=== PATIENT | female | born 1985 | race American Indian/Alaskan Native ===

== ENCOUNTER 2025-01-01 19:36 | Inpatient (IN) | payer MEDICAID ==
[~2025-01-01] VITALS: Ht 170.2 cm; Wt 182.4 kg
--- NOTE | 2025-01-01 20:18 | ELECTROCARDIOGRAPH REPORT ---
[facility] Test Date: 2025-01-01 Test Time: 20:15:42 Pat Name: DARSHAN FERREIRA Department: EMERGENCY ROOM Room: [place] [address] Gender: F Molecular Biology Director: MARIA R : 1985 Requested By: THU WOLFE Order Number: [id number] Reading MD: Dr. Timmy Oakes Measurements Intervals [place] Rate: 90 P: 38 AL: 139 QRS: -43 QRSD: 90 T: 42 QT: 362 QTc: 443 Interpretive Statements Sinus rhythm Left axis deviation Abnormal R-wave progression, late transition Baseline wander in lead(s) I,V3 Electronically Signed On 01-08-2025 7:51:[address] Timmy Oakes Please click the below link to view image of tracing.
[2025-01-01 20:20] LABS: MEAN PLATELET VOLUME 7.3 FL (7.4-10.4); RED CELL DISTRIBUTION WIDTH 14.7 % (11.5-14.5)
--- NOTE | 2025-01-01 20:27 | Physician Documentation ---
History of Present Illness General Chief Complaint: Abdominal Pain Stated Complaint: POSS HERNIA Time Seen by MD: 20:25 History of Present Illness Initial Comments Patient is a 39-year-old female who presents with sudden onset abdominal pain on the left side. The patient has significant obesity she states that about 18 30 she developed significant and severe left-sided abdominal pain, she also states she developed nausea. The patient denies any fevers or chills or diarrhea. Patient states she thinks she may have a hernia. The patient has had extensive surgery after she had gallbladder removal and a complication of gallbladder removal. Patient's symptoms are moderate to severe and persistent. Medication Reconciliation Allergies: Uncoded Allergies: BEE VENOM (Allergy, Severe, 01/01/25) Scheduled Bupropion Hcl (Wellbutrin), 1 TAB PO DAILY Buspirone Hcl* (Buspar*), 15 MG PO DAILY Rivaroxaban (Xarelto), 10 MG PO DAILY Review of Systems All Other Systems at this time: Reviewed and Negative Physical Exam Physical Exam Vital Signs: Temperature: 98.1, Source: Oral, Heart Rate: 100, Respiratory Rate: 18, BP: 152/91, Pulse Oximetry: 99, Weight: 182.400 Physical Exam VITALS: Reviewed and as above. GENERAL: Alert, mild distress secondary to pain large BMI HEENT: Normocephalic, atraumatic, PERRL, EOMI, dry mucosa, no erythema RESPIRATORY: Lungs clear, normal breath sounds, no respiratory distress. CHEST: No accessory muscle use, no retractions CV: Regular rate, rhythm, no edema, no murmur, No: JVD GI: Soft, diffuse left-sided tenderness patient has a vertical and horizontal abdominal scar in the upper abdomen well healed bowels sounds present, no rebound, guarding, or rigidity BACK: No CVA tenderness, or swelling MUSCULOSKELETAL: No deformities, no edema SKIN: Warm and dry, no rash NEURO: Oriented x4, No motor or sensory deficit PSYCH: Normal mood and affect, no agitation Progress Results/Orders Results/Orders Orders - OHLSONIA LUCIO MD Ct Abdomen Pelvis (01/01/25 21:50) Page Hospitalist (01/02/25 00:34) Fill Out Med Reconciliation (01/02/25 00:34) Completed Orders - SONIA SMALLWOOD MD Procalcitonin (01/01/25 20:39) Ketorolac Trometh 15mg/Ml Vial (Toradol (01/01/25 20:40) Metoclopramide Inj (Reglan Inj) (01/01/25 20:40) Diphenhydramine Inj (Benadryl Inj.) (01/01/25 20:40) Ct Abdomen Pelvis (01/01/25 21:50) Vital Signs 01/01/25 01/01/25 01/01/25 01/01/25 20:03 20:20 21:20 22:00 Temp 98.1 Pulse 100 90 Resp 18 18 16 16 B/P (MAP) 152/91 137/97 (110) Pulse Ox 99 99 01/01/25 01/02/25 01/02/25 23:15 00:07 01:21 Temp 97.9 97.9 Pulse 89 104 85 Resp 18 16 18 B/P (MAP) 141/83 (102) 163/94 (117) 125/73 (90) Pulse Ox 99 96 98 O2 Flow Rate 0 Laboratory Tests Test 01/01/25 20:11 01/01/25 20:18 01/01/25 22:04 White Blood Count 10.1 Red Blood Count 5.40 Hemoglobin 14.7 Hematocrit 43.0 Mean Corpuscular Volume 79.7 Mean Corpuscular Hemoglobin 27.2 Mean Corpuscular Hemoglobin Concent 34.2 Red Cell Distribution Width 14.7 H Platelet Count 353 Mean Platelet Volume 7.3 L Neutrophils (%) (Auto) 66.6 Lymphocytes (%) (Auto) 24.1 Monocytes (%) (Auto) 5.6 Eosinophils (%) (Auto) 2.2 Basophils (%) (Auto) 1.5 H Neutrophils # (Auto) 6.7 Lymphocytes # (Auto) 2.4 Monocytes # (Auto) 0.6 Eosinophils # (Auto) 0.2 Basophils # (Auto) 0.1 CBC Comment Sodium Level 137 Potassium Level 3.9 Chloride Level 105 Carbon Dioxide Level 26.3 Anion Gap 6 L Blood Urea Nitrogen 18 Creatinine 0.94 H Estimated GFR/1.73 m2 66 BUN/Creatinine Ratio 19.1 Glucose Level 120 H Calcium Level 8.8 Total Bilirubin 0.2 Aspartate Amino Transf (AST/SGOT) 18 Alanine Aminotransferase (ALT/SGPT) 23 Alkaline Phosphatase 155 H Troponin I High Sensitivity 5 5 Pro-B-Type Natriuretic Peptide 160 H Total Protein 7.4 Albumin 3.0 L Globulin 4.4 H Albumin/Globulin Ratio 0.7 L Lipase 26 Procalcitonin < 0.05 Chemistry Comments Urine Specimen Description Voided Urine Color Yellow Urine Clarity Clear Urine pH 6.0 Urine Specific [place] 1.025 Urine Protein Negative Urine Glucose (UA) Negative Urine Ketones Trace H Urine Occult Blood Negative Urine Nitrite Negative Urine Bilirubin Negative Urine Urobilinogen 0.2 Urine Leukocyte Esterase Negative Urine Culture Indicated Not ind Volume Urine Centrifuged 10 ml Urine HCG, Qualitative Negative Urine Comment Troponin I High Sens Percent Delta 0 Troponin I Hi Sens Absolute Change 0 EKG/XRAY/CT/US/VASC/MRI Chest X-Ray : Additional Comments Patient: DARSHAN FERREIRA Medical Record: [id number] HOSPITAL : 1985, Age: 39 Sex: Female Location: ER Patient Status: REG ER Service Date/Time: 01/01/252009 Ordering Physician: THU WOLFE Exam: CHEST,SINGLE VIEW CHEST RADIOGRAPH Indication: CP Technique: Single frontal view of the chest was obtained Comparison: None FINDINGS: Lines and Tubes: None Lungs: No focal consolidation. Bronchovascular crowding due to low lung volumes. Underpenetration of the image due to patient's body habitus. metallic densities overlying the right medial lower lung zone which are most likely external to the patient. Pleura: No effusion. No pneumothorax. Cardiomediastinal contours: Unremarkable Bones: No acute osseous abnormality. IMPRESSION: No acute cardiopulmonary disease. Vascular crowding due to low lung volumes. 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 This exam was performed according to our departmental dose optimization program. Up-to-date CT equipment and radiation dose reduction tech niques are utilized as appropriate. CTDI: 36.88 DLP: 2152.05 WID: COMPARISON: None FINDINGS: Lower Thorax: Normal-sized heart. Linear bibasilar scarring or atelectasis, greater on the right. Liver and Biliary system: Mild hepatomegaly measuring 20 cm craniocaudal. No definite hepatic lesion. Cholelithiasis. No biliary ductal dilatation. Spleen: Unremarkable. Adrenal Glands and Kidneys: Normal adrenal glands. There is no hydronephrosis or nephrolithiasis. Pancreas and Retroperitoneum: Normal pancreas. There is no retroperitoneal lymphadenopathy. Aorta and Major Vessels: Aortoiliac vessels are normal in caliber. There is an IVC filter terminating below the level of the renal veins with the struts extending beyond the lumen of the IVC. Bowel, Mesentery and Peritoneal space: There is mild dilatation of a segment of small bowel measuring up to 4.5 cm on series 2, image 95 leading up to a segment of small-bowel coursing into an anterior left of midline abdominal wall hernia ( series 2, image 74). The small bowel beyond this segment is decompressed. Normal caliber large bowel. Normal appendix. No free air or fluid collection. Pelvis: Grossly normal uterus and ovaries aside from a cystic lesion in the right ovary on series 2, image 93. There is no pelvic lymphadenopathy. Urinary bladder is mildly distended.. Abdominal wall and Osseous Structures: Mild body wall edema. Mild lower thoracic and lumbar spondylosis. No destructive osseous lesion. No destructive osseous lesion. Prior midline laparotomy and soft tissue scarring in the anterior abdominal wall. IMPRESSION: 1. Small-bowel obstruction of a segment of mid to distal small bowel loop with transition point in a short segment of small bowel coursing into a right of midline anterior abdominal wall hernia. This could reflect a subincisional abdominal wall hernia given post surgical changes in the anterior abdominal wall. 2. Cholelithiasis. 3. Mild hepatomegaly. Electronically Signed by:MICHELA RIVERS MD Date & Time: 01/02/2511 Dictated by: MICHELA RIVERS MD Dictation date and time: 01/02/2511 Primary Care Provider: NO PRIMARY CARE PROVIDER cc: SONIA SMALLWOOD MD ~ Medical Decision Making Additional information obtaine: old records Findings Patient is a 39-year-old female with abdominal pain she has a very large BMI and had difficult exam she is extremely uncomfortable I gave her medications to incl ude Reglan Benadryl and analgesics, the patient's CT imaging demonstrates a hernia with possible obstruction, this was discussed with the surgeon on-call Dr. Gonzalez, the patient is significantly more comfortable now she is amenable to be admitted. The case has been discussed with the hospitalist. The patient will be admitted to the hospitalist. The patient's security monitor was interpreted as sinus rhythm. The patient's CT imaging was reviewed. The patient's chest x-ray was reviewed by me and demonstrated normal-appearing lung honeycutt normal-appearing cardiac silhouette and normal-appearing bony structures interpreted as a normal chest x-ray. The patient's EKG was interpreted as a sinus rhythm rate of 90 with a left axis deviation and normal-appearing ST segments and no ST-elevation or ST-depression I interpreted as a normal EKG time 2014 Differential Diagnosis Colitis enteritis perforated bowel diverticulitis appendicitis Departure Disposition: HOME / SELF CARE / HOMELESS Admitted to Inpatient Unit: yes, to hospitalist Impression: Primary Impression: Abdominal pain Qualified Codes: R10.9 - Unspecified abdominal pain Additional Impression: Small bowel obstruction Referrals: NO PRIMARY CARE PROVIDER (PCP) Prescriptions Buspirone Hcl* (Buspar*) 10 Mg Tablet 15 MG PO DAILY for 30 Days, #60 TAB Prov: YE RAMOS MD 01/02/25 Rivaroxaban (Xarelto) 10 Mg Tablet 10 MG PO DAILY for clotting issues MDD 10 for 7 Days, #7 TAB 0 Refills Prov: YE RAMOS MD 01/02/25 Bupropion Hcl (Wellbutrin) 100 Mg Tablet 1 TAB PO DAILY for 30 Days, #60 TAB 0 Refills Prov: YE RAMOS MD 01/02/25 Signature Scribe Signature: no scribe Attestation: The note accurately reflects work and decisions made by me.Sonia Smallwood MD 01/04/25 06:44 SONIA SMALLWOOD MD Jan 01, 2025 20:27
[2025-01-01 20:42] LABS: CREATININE 0.94 MG/DL (0.40-0.90); TOTAL CARBON DIOXIDE 26.3 MMOL/L (24-32); eCRCL 77 ML/MIN; eGFR 66 ML/MIN
[2025-01-01 20:44] LABS: PRO BRAIN NATRIURETIC PEPTIDE 160 PG/ML (0-125)
--- NOTE | 2025-01-01 20:46 | RADIOLOGY REPORT ---
CHEST RADIOGRAPH Indication: CP Technique: Single frontal view of the chest was obtained Comparison: None FINDINGS: Lines and Tubes: None Lungs: No focal consolidation. Bronchovascular crowding due to low lung volumes. Underpenetration of the image due to patient's body habitus. metallic densities overlying the right medial lower lung zone which are most likely external to the patient. Pleura: No effusion. No pneumothorax. Cardiomediastinal contours: Unremarkable Bones: No acute osseous abnormality. IMPRESSION: No acute cardiopulmonary disease. Vascular crowding due to low lung volumes.
[2025-01-01] MEDS: metoclopramide 5 mg/ml inj IV ONE (21:19)
[2025-01-01] MEDS: ketorolac trometh 15mg/ml vial 15 MG/ML ML IV ONE (21:20)
[2025-01-01 21:35] LABS: LEUKOCYTE ESTERASE ,URINE NEGATIVE (Neg); NITRITES, URINE NEGATIVE (Neg); OCCULT BLOOD,URINE NEGATIVE (Neg)
[2025-01-01 21:37] LABS: URINE HCG NEGATIVE (NEG)
[2025-01-01 21:39] LABS: UA COLLECTION TYPE VOIDED
[2025-01-02] VITALS (19 sets, daily range): BP systolic 93–133; BP diastolic 42–88; PULSE 80–93; RESP 14–20; TEMP 97.7–98.4; O2SAT 93–98
--- NOTE | 2025-01-02 00:14 | RADIOLOGY REPORT ---
CLINICAL HISTORY: abd pain TECHNIQUE: CT of the abdomen and pelvis was performed without intravenous contrast. This exam was performed according to our departmental dose optimization program. Up-to-date CT equipment and radiation dose reduction techniques are utilized as appropriate. CTDI: 36.88 DLP: 2152.05 WID: COMPARISON: None FINDINGS: Lower Thorax: Normal-sized heart. Linear bibasilar scarring or atelectasis, greater on the right. Liver and Biliary system: Mild hepatomegaly measuring 20 cm craniocaudal. No definite hepatic lesion. Cholelithiasis. No biliary ductal dilatation. Spleen: Unremarkable. Adrenal Glands and Kidneys: Normal adrenal glands. There is no hydronephrosis or nephrolithiasis. Pancreas and Retroperitoneum: Normal pancreas. There is no retroperitoneal lymphadenopathy. Aorta and Major Vessels: Aortoiliac vessels are normal in caliber. There is an IVC filter terminating below the level of the renal veins with the struts extending beyond the lumen of the IVC. Bowel, Mesentery and Peritoneal space: There is mild dilatation of a segment of small bowel measuring up to 4.5 cm on series 2, image 95 leading up to a segment of small-bowel coursing into an anterior left of midline abdominal wall hernia ( series 2, image 74). The small bowel beyond this segment is decompressed. Normal caliber large bowel. Normal appendix. No free air or fluid collection. Pelvis: Grossly normal uterus and ovaries aside from a cystic lesion in the right ovary on series 2, image 93. There is no pelvic lymphadenopathy. Urinary bladder is mildly distended.. Abdominal wall and Osseous Structures: Mild body wall edema. Mild lower thoracic and lumbar spondylosis. No destructive osseous lesion. No destructive osseous lesion. Prior midline laparotomy and soft tissue scarring in the anterior abdominal wall. IMPRESSION: 1. Small-bowel obstruction of a segment of mid to distal small bowel loop with transition point in a short segment of small bowel coursing into a right of midline anterior abdominal wall hernia. This could reflect a subincisional abdominal wall hernia given post surgical changes in the anterior abdominal wall. 2. Cholelithiasis. 3. Mild hepatomegaly.
[2025-01-02] MEDS ORDERED: magnesium Cl slow-release 64mg tablet PO PRN (01:25)
[2025-01-02] MEDS ORDERED: magnesium sulf-water 4G/100mL 100 ML IV PRN (01:25)
[2025-01-02] MEDS ORDERED: ondansetron/PF 4mg/2ml inj IV PRN ×2 (01:25→19:25)
[2025-01-02] MEDS ORDERED: potassium Cl 40MEQ/1/2NS 520ml 520 ML IV PRN (01:25)
[2025-01-02] MEDS ORDERED: magnesium sulf-water 2g/50mL 50 ML IV PRN (01:25)
[2025-01-02] MEDS ORDERED: potassium Cl 20 mEq SR tablet PO PRN ×2 (01:25)
[2025-01-02] MEDS: normal saline 1000ml 1,000 ML IV SCH (01:55)
--- NOTE | 2025-01-02 02:02 | HISTORY AND PHYSICAL-Residence ---
History & Physical Providers to CC Resident Creating Document: YASH HARPERTAQUERIA ~ History of Present Illness Reason for Admit\Complaint: Abdominal pain History of Present Illness 39 years old female with history of obesity BMI 63, multiple abdominal surgery presented to the ED due to abdominal pain. Patient reported pain started yesterday suddenly, it was on in the middle part of abdomen, severity 7/10, non positional, not radiated, no aggravating factor, however he reported he had 2 times vomiting and after vomiting pain subside to three 4/10. He denied any changes in bowel movement, last bowel movement was normal a day before visit ER, no any changes in urinary habits. Denied fever or chills shortness of breaths, chest pain. Patient had extensive abdominal surgery, started about seven eight years ago she underwent cholecystectomy and afterward she had 4 herniorrhaphy, last surgery was last January. Allergies: Uncoded Allergies: BEE VENOM (Allergy, Severe, 01/01/25) Past Medical History Past Medical History Asthma Past Surgical History Surgical History Comment Cholecystectomy 2019 Herniorrhaphy 4 times waiting last 70 years last one was02/08 DVT Family History Family History: Patient reports no known family medical history. Past Social History Smoking: Quit greater than 1 year Alcohol Use: Sober (Quit drinking alcohol since 2019) Drug Use: None ROS ROS Constitutional: No fever, dizziness, weakness. no change in appetite/weight HEENT: No blurring of the vision, No sore throat, epistaxis, tinnitus Cardiovascular: no chest pain/discomfort, palpitations, no syncope. No pedal edema Respiratory: No sob, cough,, hemoptysis Gastrointestinal: As HPI Genitourinary: No frquency, urgency, incontinence, nocturia. No dysuria, hematuria Musculoskeletal: No arthralgia, myalgia Endocrine: No polydipsia, polyuria. No heat or cold intolerance Neurologic: No headache, vertigo. No weakness, no numbness or tingling of extremities Psychiatric: No hallucinations/delusions, no anhedonia, no suicidal ideation\ Hematologic: No bleeding or bruises Exam Vitals: Vital Signs Date Time Temp Pulse Resp B/P (MAP) Pulse Ox O2 Delivery O2 Flow Rate FiO2 01/02/25 01:21 85 18 125/73 (90) 98 01/02/25 00:07 97.9 0 General: General: Obese lady, Awake and Alert, no acute distress. HEENT: Conjunctiva pink, Sclera clear, Mucus Membranes moist. Neck: Supple without masses and tenderness. Resp: diminished breath sounds Heart: Regular Rate and rhythm, normal S1 and S2 without murmur, rub or gallop. Abdomen: Obese abdomen, multiple scars, mild tenderness in the middle part of abdomen, Extremities: No cyanosis,clubbing or edema. Skin: Warm and Dry. Neurological: Speech is clear, alert, and oriented x 4, no gross neurological deficits Diagnostic Data Last Recorded Lab Results: 01/01/25201001/01/252010 Advance Care Planning Advanced Care plannin - 30 Minutes Additional Plan 39 years old female with history of obesity, multiple abdominal surgery presented to ED with abdominal pain Abdominal pain small-bowel obstruction No leukocytosis, procalcitonin is normal, lactic acid is pending CT scan showed: 1. Small-bowel obstruction of a segment of mid to distal small bowel loop with transition point in a short segment of small bowel coursing into a right of midline anterior abdominal wall hernia. This could reflect a subincisional abdominal wall hernia given post surgical changes in the anterior abdominal wall. 2. Cholelithiasis. 3. Mild hepatomegaly. Patient received ketorolac and Benadryl in ED and pain controlled, we will continue with IV Tylenol IV fluid started, Dr Garcia was consulted in ED, agreed to evaluate patient we will put the NG tube History of DVT Patient is taking Xarelto at home we will hold it for tonight for possible surgery Code status discussed with patient, and he expressed a preference for DNR, she understand the concept of DNR and reported I was DNR since I was 21 years old! Code Status: DNR, DVT prophylaxis: Lovenox Analgesia/sedation: Morphine, Tylenol Line/tube: Peripheral GI prophylaxis: Protonix Nutrition: NPO PT: Y Prognosis: Guarded Disposition: Continue monitoring in ortho floor with telemetry Yash Harper MD Internal Medicine Resident Patient evaluated using HIPPA complaint AV device Agree with plan as discussed with the resident Ye Moreno MD Date of Service: Jan 02, 2025 Billing Provider: YE MORENO MD, ELAHE, TAQUERIA Jan 02, 2025 02:02 YE MORENO MD Jan 02, 2025 03:24
[2025-01-02] MEDS ORDERED: BUPR100T13 PO ×2 (02:25→07:56)
[2025-01-02] MEDS ORDERED: BUSP10TA11 PO ×2 (02:26→08:03)
[2025-01-02] MEDS ORDERED: RIVA10TA PO ×2 (02:28→07:59)
[2025-01-02] MEDS ORDERED: acetaminophen 1,000mg/100ml IV 100 ML IV PRN (02:40)
[2025-01-02] MEDS ORDERED: CefTRIAXone/D5W-Rocephin 1gm 50 ML IV SCH (02:45)
[2025-01-02] MEDS: ringers solution, lacted 1,000 ML IV SCH ×2 (03:47→20:18)
[2025-01-02] MEDS: docusate sod 100mg capsule PO SCH (07:49)
[2025-01-02] MEDS ORDERED: metroNIDAZOLE-Flagyl 500mg/NS 100 ML IV SCH (08:00)
[2025-01-02] MEDS: K and/or MAG REPLACEMENT MC SCH (08:00)
[2025-01-02] MEDS: metoclopramide 5 mg/ml inj IV ONE (09:50)
[2025-01-02] MEDS ORDERED: metoclopramide 5 mg/ml inj IV PRN (09:50)
[2025-01-02 13:33] LABS: APTT 26 SECONDS (22-32); INR 1.0 INR
[2025-01-02] MEDS: ceFOXitin 2GM-NS 100mL ADDvant 100 ML IV ONE (14:10)
--- NOTE | 2025-01-02 14:10 | PROGRESS NOTE ---
Progress Note ID Providers to CC ~ Progress Note Progress Note: pt seen and examined-needs robo repair possible open incisional hernia with sbo- discussed procedure including risks/benefits/alternatives BONIFACIO MOORE MD Jan 02, 2025 14:10
[2025-01-02] MEDS ORDERED: BUPIVAcaine 2.5mg/ml inj 50ml vial (contains preservative) ONE (15:52)
[2025-01-02] MEDS: fentaNYL/PF 50MCG/1 ML 2ML syringe ONE (15:53)
[2025-01-02] MEDS: midazolam 1 mg/ML 2ml injection ONE (15:53)
[2025-01-02] MEDS: famotidine/PF 10 mg/ml inj IV ONE (15:54)
[2025-01-02] MEDS ORDERED: fentaNYL /PF 50mcg/ml 5ml ampule ONE (16:23)
[2025-01-02] MEDS ORDERED: ceFOXitin 1000 MG inj ONE ×2 (16:41)
[2025-01-02] MEDS ORDERED: ondansetron/PF 4mg/2ml inj ONE (16:41)
[2025-01-02] MEDS ORDERED: rocuronium 10mg/ml inj IV ONE ×2 (16:41→17:03)
[2025-01-02] MEDS ORDERED: LIDOcaine 2% (20mg/ml) 5ml vial ONE (16:41)
[2025-01-02] MEDS ORDERED: propofol inj 20 ML IV ONE (16:41)
[2025-01-02] MEDS ORDERED: dexamethasone sod phosphate 4mg/ml inj. ONE (16:42)
[2025-01-02] MEDS ORDERED: vancomycin 1,000mg inj ONE (19:01)
[2025-01-02] MEDS ORDERED: labetalol 20mg/4ml (5mg/ml) syringe IV PRN (19:25)
[2025-01-02] MEDS ORDERED: HYDROmorphone/PF 0.2 MG/ML SYRINGE IV PRN (19:25)
[2025-01-02] MEDS ORDERED: hydrALAZINE 20mg/ml inj. IV PRN (19:25)
--- NOTE | 2025-01-02 19:42 | PROGRESS NOTE- Residence ---
Progress Note - Resident Providers to CC Resident Creating Document: JACOBO SINGLETON RES ~ Antibiotic Timeout Antibiotic Ordered?: Yes Subjective seen and examined patient at bed side, patient underwent Robotic repair of hernia with no mesh , patient is currently on IV fluids and pain medications Objective Vital Signs Date Time Temp Pulse Resp B/P (MAP) Pulse Ox O2 Delivery O2 Flow Rate FiO2 01/02/25 10:00 97.9 89 20 108/63 (78) 96 Room Air 01/02/25 08:00 0.0 Result Diagram: 01/01/25201001/02/25 0152 General: Obese lady, Awake and Alert, no acute distress. HEENT: Conjunctiva pink, Sclera clear, Mucus Membranes moist. Neck: Supple without masses and tenderness. Resp: diminished breath sounds,no ronchi,no wheeze Heart: Regular Rate and rhythm, normal S1 and S2 without murmur, rub or gallop. Abdomen: Obese abdomen, multiple scars, mild tenderness in the middle part of abdomen, Extremities: No cyanosis,clubbing or edema. Skin: Warm and Dry. Neurological: Speech is clear, alert, and oriented x 4, no gross neurological deficits Coagulation Studies Laboratory Tests Test 01/02/25 13:07 Prothrombin Time 9.9 SECONDS (9.0-12.0) INR International Normalized Ratio 1.0 INR Activated Partial Thromboplast Time 26 SECONDS (22-32) Coagulation Comments Advance Care Planning Advanced Care plannin - 30 Minutes Plan Plan 39 years old female with history of obesity, multiple abdominal surgery presented to ED with abdominal pain Abdominal pain small-bowel obstruction No leukocytosis, procalcitonin is normal, lactic acid is pending CT scan showed: 1. Small-bowel obstruction of a segment of mid to distal small bowel loop with transition point in a short segment of small bowel coursing into a right of midline anterior abdominal wall hernia. This could reflect a subincisional abdominal wall hernia given post surgical changes in the anterior abdominal wall. 2. Cholelithiasis. 3. Mild hepatomegaly. Patient received ketorolac and Benadryl in ED and pain controlled, we will continue with IV Tylenol IV fluid started, Dr Garcia was consulted in ED, and patient Underwent robo repair incisional hernia-no mesh-surgery with History of DVT held home medication in view of surgery Code Status: DNR, DVT prophylaxis: SCDs Line/tube: Peripheral GI prophylaxis: Protonix Nutrition: NPO PT: Y Prognosis: Guarded Jacobo Singleton PGY1 Date of Service: Jan 02, 2025 Billing Provider: GRACIE MENA MD, SATISH, RES Jan 02, 2025 19:42
[2025-01-02] MEDS ORDERED: morphine 10mg/ml inj. ONE (19:47)
[2025-01-02] MEDS ORDERED: labetalol 20mg/4ml (5mg/ml) syringe IV ONE (19:54)
[2025-01-02] MEDS ORDERED: enoxaparin 40mg/0.4ml syringe SQ SCH (20:00)
[2025-01-02] MEDS: HYDROmorphone/PF 0.2 MG/ML SYRINGE IV PRN (20:05)
[2025-01-02] MEDS: morphine 4 MG/ML inj SYRINge IV PRN (20:06)
--- NOTE | 2025-01-02 20:10 | OPERATIVE REPORT ---
Operative Report Providers to CC ~ Date of Procedure: Jan 02, 2025 Pre-Operative Diagnosis: incisional hernia with sbo Post-Operative Diagnosis SAME as PRE-Op Procedure Performed robo miri/robo repair incisional hernia-no mesh Surgeon: ashkan mar Anesthesiologist: Taryn Reyes Type of Anesthesia: General Findings: extensive adhesions Estimated Blood Loss: 100 ml Specimen Removed: none BONIFACIO MOORE MD Jan 02, 2025 20:10
[2025-01-02] MEDS: acetaminophen 1,000mg/100ml IV 100 ML IV PRN (20:15)
[2025-01-02] MEDS: ketorolac trometh 30MG/ML vial 30 MG/ML VIAL IM ONE (20:16)
[2025-01-02] MEDS ORDERED: ketorolac trometh 30MG/ML vial 30 MG/ML VIAL IV PRN (20:20)
[2025-01-02] MEDS: HYDROmorphone inj. 0.5 MG/0.5 ML DISP.SYRIN IV PRN (23:55)
[2025-01-03] VITALS (11 sets, daily range): BP systolic 104–129; BP diastolic 59–79; PULSE 76–99; RESP 14–20; TEMP 96.9–98.5; O2SAT 95–98
--- NOTE | 2025-01-03 03:55 | CONSULTATION ---
DATE OF CONSULTATION: 01/02/2025 DICTATING PHYSICIAN: Trent Gonzalez MD REASON FOR CONSULTATION: Incisional hernia. HISTORY OF PRESENT ILLNESS: The patient is a 39-year-old female with a history of multiple incisional hernia repairs, complaints of abdominal pain, nausea and vomiting. CAT scan revealed evidence of an incisional hernia containing a loop of small bowel resulting in the small bowel obstruction. Surgery evaluation is now requested for further questioning. The patient has had recurrent vomiting. Last surgical repair was approximately in January 2024. She has had multiple abdominal procedures including previous cholecystectomy with multiple hernia repairs post cholecystectomy. PAST MEDICAL HISTORY: History of asthma. PAST SURGICAL HISTORY: As outlined above. HOME MEDICATIONS: See chart. ALLERGIES: BEE VENOM. SOCIAL HISTORY: Remote history of alcohol and tobacco use. REVIEW OF SYSTEMS: See H and P. PHYSICAL EXAMINATION: GENERAL: A well-nourished obese female, in no distress. VITAL SIGNS: Unremarkable. HEART: Regular rate and rhythm. LUNGS: Clear to auscultation. ABDOMEN: Shows multiple scars with some tenderness just above the umbilicus. EXTREMITIES: Unremarkable. NEUROLOGIC: Nonfocal. LABORATORY DATA: MCV of 10, hematocrit of 43, platelet count is 353. Iron is 1, PTT is 26. Chemistry is essentially unremarkable. IMAGING STUDIES: CT abdomen and pelvis confirms trends of the incisional hernia containing small bowel. IMPRESSION: * Incisional hernia with small bowel obstruction. * History of obesity. * History of asthma. RECOMMENDATIONS: * N.p.o. * Surgical repair. Trent Gonzalez MD TID: [id number] RECEIPT: [id number] KB/SRI
--- NOTE | 2025-01-03 04:04 | OPERATIVE REPORT ---
DATE OF SURGERY: 01/02/2025 DICTATING PHYSICIAN: Trent Gonzalez MD PREOPERATIVE DIAGNOSIS: Incisional hernia with small bowel obstruction. POSTOPERATIVE DIAGNOSIS: Incisional hernia with small bowel obstruction. PROCEDURES PERFORMED: * Robotic repair of incisional hernia. * Robotic lysis of adhesions. SURGEON: Trent Gonzalez MD SENIOR MANAGER QUALITY ASSURANCE: None. ANESTHESIA: General/Dr. Reyes. DRAINS: None. INDICATIONS FOR OPERATION: The patient is a 39-year-old female, status post previous cholecystectomy. She has had multiple hernias repaired. The patient developed an incisional hernia with small bowel resulting in small bowel obstruction. Taken to the surgery for repair. INTRAOPERATIVE FINDINGS: The patient had extensive adhesions in the abdominal cavity. It was extremely difficult to access given the multiple procedures. DESCRIPTION OF PROCEDURE: Hernia sac was closed via 2 sutures of 0 V-Loc. No mesh was used due to concerns about possible small bowel injury. Per anesthesia, the patient was placed supine on the operating table. After induction of general anesthesia, the patient's abdomen was prepped and draped. A subxiphoid incision was made, but access could not be had into the peritoneal cavity. A subumbilical incision was then made and likewise, it was very difficult to enter the peritoneal cavity. The supraumbilical incision was subsequently made and extended for a short distance cephalad in anticipation of doing an open repair; however, incising the fascia allowed entrance into the peritoneal cavity and a Yun port was subsequently placed. Pneumoperitoneum was initiated. Additional ports were then placed on the left side of the abdomen. There were a number of problems obtaining adequate insufflation given her size; however, ultimately adequate insufflation was obtained. Robotic ports were placed under laparoscopic vision. The robot was then brought to the field. The camera port was docked. The camera was placed and camera targeted. Additional ports were then docked and instruments placed. Adhesions were then taken down robotically. The fascial defect subsequently identified. The fascial defect was then closed with a suture of #0 V-Loc in multiple layers. Given the extensive lysis of adhesions and concerns about a possible potential enterotomy, was visualized, mesh was not placed. The abdomen was copiously irrigated with a large amount of antibiotic-containing solution. The 12-mm port placed in the left lower quadrant was removed and the incision closed after the robot was removed with #1 Vicryl needle. The robot was removed from the field. Prior to that, placed using the laparoscope. After irrigation of the abdominal cavity, the ports were subsequently removed. The pneumoperitoneum was then evacuated. Wounds were subsequently closed in layers. The skin was closed with clips. Dressings were applied to the abdomen. The patient was transferred to recovery in stable condition. Trent Gonzalez MD TID: [id number] RECEIPT: [id number] /[facility] [place]
[2025-01-03 06:28] LABS: MEAN PLATELET VOLUME 7.7 FL (7.4-10.4); RED CELL DISTRIBUTION WIDTH 14.6 % (11.5-14.5)
[2025-01-03 06:59] LABS: CREATININE 0.70 MG/DL (0.40-0.90); TOTAL CARBON DIOXIDE 27.3 MMOL/L (24-32); eCRCL 104 ML/MIN; eGFR > 90 ML/MIN
[2025-01-03] MEDS: HYDROcodone/acetaminophen 5mg/325mg tablet PO PRN (12:23)
[2025-01-03 12:59] LABS: URINE AMPHETAMINE SCREEN NEGATIVE (Neg); URINE BARBITUATE SCREEN NEGATIVE (Neg); URINE BENZODIAZEPINES SCREEN POSITIVE (Neg); URINE CANNABINOID SCREEN NEGATIVE (Neg); URINE COCAINE SCREEN NEGATIVE (Neg); URINE METHADONE SCREEN NEGATIVE (Neg); URINE OPIATE SCREEN NEGATIVE (Neg); URINE PHENCYCLIDINE SCREEN NEGATIVE (Neg)
[2025-01-03] MEDS: piperacillin/tazo 3.375gm/50ml 50 ML IV SCH (16:08)
--- NOTE | 2025-01-03 16:12 | PROGRESS NOTE ---
Progress Note ID Providers to CC ~ Progress Note Progress Note: pain improving/vss/abd-min distention/labs noted a/p 1. s/p repair incisional hernia-slow progress/cont supportive care BONIFACIO MOORE MD Jan 03, 2025 16:12
--- NOTE | 2025-01-03 20:17 | PROGRESS NOTE- Residence ---
Progress Note - Resident Providers to CC Resident Creating Document: JACOBO SINGLETON RES ~ Antibiotic Timeout Antibiotic Ordered?: Yes Subjective seen and examined patient at bed side, patient underwent Robotic repair of hernia with no mesh, patient passed gas and did not have any bowel movement yet Objective Vital Signs Date Time Temp Pulse Resp B/P (MAP) Pulse Ox O2 Delivery O2 Flow Rate FiO2 01/03/25 19:06 19 01/03/25 15:00 98.5 98 122/59 (80) 97 Room Air 01/03/25 08:00 3.0 01/03/25 06:00 32 Result Diagram: 01/03/25 0530 01/03/25 0530 General: Obese lady, Awake and Alert, no acute distress. HEENT: Conjunctiva pink, Sclera clear, Mucus Membranes moist. Neck: Supple without masses and tenderness. Resp: diminished breath sounds,no ronchi,no wheeze Heart: Regular Rate and rhythm, normal S1 and S2 without murmur, rub or gallop. Abdomen: Obese abdomen, multiple scars, wound dressing on abdomen, mildly decreased bowel sounds Extremities: No cyanosis,clubbing or edema. Skin: Warm and Dry. Neurological: Speech is clear, alert, and oriented x 4, no gross neurological deficits Coagulation Studies Laboratory Tests Test 01/02/25 13:07 Prothrombin Time 9.9 SECONDS (9.0-12.0) INR International Normalized Ratio 1.0 INR Activated Partial Thromboplast Time 26 SECONDS (22-32) Coagulation Comments Advance Care Planning Advanced Care plannin - 30 Minutes Plan Plan 39 years old female with history of obesity, multiple abdominal surgery presented to ED with abdominal pain Abdominal pain small-bowel obstruction S/P Robotic repair of hernia with no mesh No leukocytosis, procalcitonin is normal, lactic acid is pending CT scan showed: 1. Small-bowel obstruction of a segment of mid to distal small bowel loop with transition point in a short segment of small bowel coursing into a right of midline anterior abdominal wall hernia. This could reflect a subincisional abdominal wall hernia given post surgical changes in the anterior abdominal wall. Patient is started on Zosyn IV q.8h, Iby Dr. Gonzalez Continue monitoring CBC/CMP History of DVT Started on rivaroxaban Code Status: DNR, DVT prophylaxis: SCDs Line/tube: Peripheral GI prophylaxis: Protonix Nutrition: Full liquid diet PT: Y Prognosis: Guarded Jacobo Singleton PGY1 Date of Service: Jan 03, 2025 Billing Provider: GRACIE MENA MD, SATISH, RES Jan 03, 2025 20:17
[2025-01-03] MEDS: HYDROcodone/acetaminophen 10/325mg tab PO PRN (21:25)
[2025-01-04] VITALS (11 sets, daily range): BP systolic 111–147; BP diastolic 59–94; PULSE 71–105; RESP 13–20; TEMP 97.5–98.8; O2SAT 94–98
[2025-01-04 05:55] LABS: MEAN PLATELET VOLUME 7.7 FL (7.4-10.4); RED CELL DISTRIBUTION WIDTH 14.7 % (11.5-14.5)
[2025-01-04 06:03] LABS: CREATININE 0.72 MG/DL (0.40-0.90); TOTAL CARBON DIOXIDE 27.8 MMOL/L (24-32); eCRCL 101 ML/MIN; eGFR 90 ML/MIN
[2025-01-04] MEDS: rivaroxaban 10mg tablet PO SCH (08:00)
--- NOTE | 2025-01-04 15:21 | PROGRESS NOTE ---
Progress Note ID Providers to CC ~ Progress Note Progress Note: complains of pain/vss/remy-mild distention/wbc improving a/p 1. s/p repair incisional hernia-slow progress/add mom BONIFACIO MOORE MD Jan 04, 2025 15:21
--- NOTE | 2025-01-04 18:25 | PROGRESS NOTE- Residence ---
Progress Note - Resident Providers to CC Resident Creating Document: LISA COURTNEY RES ~ Antibiotic Timeout Antibiotic Ordered?: Yes Subjective Patient was seen at the bedside of PCU today, downgraded to surgical unit today. Patient did not have any bowel movement yet but very short passing of the gas for one time has been noted this morning. The patient has been walking around more than 300 ft this morning. She did not complain about any nausea vomiting, abdominal distention and intolerable abdominal pain except for some degree. Objective Vital Signs Date Time Temp Pulse Resp B/P (MAP) Pulse Ox O2 Delivery O2 Flow Rate FiO2 01/04/25 15:21 22 01/04/25 15:02 98 Room Air 0.0 01/04/25 15:00 98.2 71 127/78 (94) 01/03/25 20:00 21 Result Diagram: 01/04/2552201/04/25522 Vitals were stable at the moment with temp 98.2 F, OK 71/minute, RR tachy/minute, BP 127/70 mm Hg, pulse oximetry 94% on room air. On exam, General: Well alert, well oriented, not confused, not agitated, not in acute distress, well cooperated during the physical. HEENT: Conjunctive are pink, sclerae clear, no icterus, pupil is equal in both sides, reactive to light, no ear discharge, no pharyngeal erythema or an edema, mouth and lips are moist. Neck: Supple, no JVD, no lymphadenopathy and thyromegaly. Lungs:Equal air entry on both lungs, no additional sounds Heart: S1-S2 regular sinus rhythm and, regular rate, no gallops, no rubs, no murmurs Abdomen: The abdomen is secure with the abdominal binder, no signs of active bleeding/leakage under the abdominal binder, No visible peristalsis, Bowel sounds present on auscultation and sluggish, soft, slightly distended, tenderness over the operative site, no guarding, no rigidity Extremities: No obvious deformities, no pitting edema bilaterally, capillary refill intact, able to wiggle toes both sides, peripheral pulsations are intact on both sides REHAB TECHNICIAN: No focal neurological deficits, no motor and sensory weakness in all 4 extremities, could move all 4 extremities Musculoskeletal: No joint swelling, deformities, inflammations, and no scoliosis and back tenderness Skin: No active skin lesions and rashes Coagulation Studies Laboratory Tests Test 01/02/25 13:07 Prothrombin Time 9.9 SECONDS (9.0-12.0) INR International Normalized Ratio 1.0 INR Activated Partial Thromboplast Time 26 SECONDS (22-32) Coagulation Comments Assessment Assessment A 39 years old female with history of obesity, multiple abdominal surgery presented to ED with abdominal pain Plan Plan # Actue Abdominal pain from small-bowel obstruction # S/P Robotic repair of hernia with no mesh -postop day one -% saw the patient, added MOM for postop ileus and slight abdominal distention - CT scan showed: 1. Small-bowel obstruction of a segment of mid to distal small bowel loop with transition point in a short segment of small bowel coursing into a right of midline anterior abdominal wall hernia. This could reflect a subincisional abdominal wall hernia given post surgical changes in the anterior abdominal wall. -Patient is started on Zosyn IV q.8h, Dr. Gonzalez -Continue monitoring CBC/CMP # History of DVT -Started on rivaroxaban Code Status: DNR DVT prophylaxis: SCDs until fully ambulatory Line/tube: Peripheral GI prophylaxis: Protonix Nutrition: Full liquid diet PT: Y Prognosis and disposition: Guarded, downgraded to surgical floor, monitor bowel movement bowel sound, abdominal pain control, encourage movement, PT eval and DC plan. Resident MD attestation: Patient was seen, examined and discussed with attending MD, Dr. Ed COURTNEY MD Internal Medicine Resident, PGY3 [facility] Date of Service: Jan 04, 2025 Billing Provider: GRACIE MENA MD, TIN, RES Jan 04, 2025 18:25
[2025-01-05 05:13] LABS: HBSAG SCREEN Negative (Negative); HEP B CORE AB, IGM Negative (Negative); HEP B CORE AB, TOT Negative (Negative)
[2025-01-05 06:00] VITALS: BP 116/71; PULSE 88; RESP 13; TEMP 98.1; O2SAT 94
[2025-01-05 07:56] LABS: MEAN PLATELET VOLUME 7.4 FL (7.4-10.4); RED CELL DISTRIBUTION WIDTH 15.0 % (11.5-14.5)
[2025-01-05 08:42] LABS: CREATININE 0.64 MG/DL (0.40-0.90); TOTAL CARBON DIOXIDE 28.6 MMOL/L (24-32); eCRCL 114 ML/MIN; eGFR > 90 ML/MIN
[2025-01-05] MEDS: magnesium hydroxide 30ml (MOM) UD suspension PO SCH (09:37)
[2025-01-05 11:00] VITALS: BP 132/83; PULSE 85; RESP 21; TEMP 97.8; O2SAT 97
--- NOTE | 2025-01-05 17:45 | PROGRESS NOTE- Residence ---
Progress Note - Resident Providers to CC Resident Creating Document: LISA COURTNEY RES ~ Antibiotic Timeout Antibiotic Ordered?: Yes Subjective Patient was seen at the bedside today. She felt better passing gas today although she did not have any bowel movement yet. She is currently having full liquid diet without having any difficulties. Objective Vital Signs Date Time Temp Pulse Resp B/P (MAP) Pulse Ox O2 Delivery O2 Flow Rate FiO2 01/05/25 11:00 97.8 85 21 132/83 (99) 97 Room Air 01/05/25 08:00 0.0 01/03/25 20:00 21 Result Diagram: 01/05/2573001/05/25 0731 Vitals were stable at the moment with temp 98.1'F, IA 88/minute, RR 18/minute, BP 116/71 mm Hg, pulse oximetry 94% on room air. On exam, General: Well alert, well oriented, not confused, not agitated, not in acute distress, well cooperated during the physical. HEENT: Conjunctive are pink, sclerae clear, no icterus, pupil is equal in both sides, reactive to light, no ear discharge, no pharyngeal erythema or an edema, mouth and lips are moist. Neck: Supple, no JVD, no lymphadenopathy and thyromegaly. Lungs:Equal air entry on both lungs, no additional sounds Heart: S1-S2 regular sinus rhythm and, regular rate, no gallops, no rubs, no murmurs Abdomen: The abdomen is secure with the abdominal binder, no signs of active bleeding/leakage under the abdominal binder, No visible peristalsis, Bowel sounds present on auscultation and sluggish, soft, slightly distended, tenderness over the operative site, no guarding, no rigidity Extremities: No obvious deformities, no pitting edema bilaterally, capillary refill intact, able to wiggle toes both sides, peripheral pulsations are intact on both sides FORENSIC SERGEANT: No focal neurological deficits, no motor and sensory weakness in all 4 extremities, could move all 4 extremities Musculoskeletal: No joint swelling, deformities, inflammations, and no scoliosis and back tenderness Skin: No active skin lesions and rashes Coagulation Studies Laboratory Tests Test 01/02/25 13:07 Prothrombin Time 9.9 SECONDS (9.0-12.0) INR International Normalized Ratio 1.0 INR Activated Partial Thromboplast Time 26 SECONDS (22-32) Coagulation Comments Assessment Assessment A 39 years old female with history of obesity, multiple abdominal surgery presented to ED with abdominal pain Plan Plan # Actue Abdominal pain from small-bowel obstruction # S/P Robotic repair of hernia with no mesh -postop day two -Dr Gonzalez saw the patient, added MOM for postop ileus and slight abdominal distention, having passing the gas but not BM - CT scan showed: 1. Small-bowel obstruction of a segment of mid to distal small bowel loop with transition point in a short segment of small bowel coursing into a right of midline anterior abdominal wall hernia. This could reflect a subincisional abdominal wall hernia given post surgical changes in the anterior abdominal wall. -Continue Zosyn IV q.8h, Dr. Gonzalez -Continue monitoring CBC/CMP # History of DVT -Started on rivaroxaban Code Status: DNR DVT prophylaxis: SCDs until fully ambulatory Line/tube: Peripheral GI prophylaxis: Protonix Nutrition: Full liquid diet PT: Y Prognosis and disposition: Guarded, continue care in surgical floor, monitor bowel movement bowel sound, abdominal pain control, encourage movement, PT eval and DC plan. Resident MD attestation: Patient was seen, examined and discussed with attending MD, Dr. Ed COURTNEY MD Internal Medicine Resident, PGY3 [facility] Date of Service: Jan 05, 2025 Billing Provider: GRACIE MENA MD, TIN, RES Jan 05, 2025 17:45
[2025-01-05 18:00] VITALS: BP 124/75; PULSE 96; RESP 18; TEMP 98.2; O2SAT 99
[2025-01-05 20:30] VITALS: RESP 18
--- NOTE | 2025-01-05 21:14 | PROGRESS NOTE ---
Progress Note ID Providers to CC ~ Progress Note Progress Note: doing well/home in am BONIFACIO MOORE MD Jan 05, 2025 21:14
[2025-01-05 22:00] VITALS: BP_SYST 129; BP_SYST 179; BP_DIAS 72; PULSE 94; RESP 20; TEMP 98; O2SAT 94
[2025-01-06 03:40] LABS: MEAN PLATELET VOLUME 7.4 FL (7.4-10.4); RED CELL DISTRIBUTION WIDTH 14.7 % (11.5-14.5)
[2025-01-06 04:04] LABS: CREATININE 0.66 MG/DL (0.40-0.90); TOTAL CARBON DIOXIDE 31.1 MMOL/L (24-32); eCRCL 110 ML/MIN; eGFR > 90 ML/MIN
[2025-01-06 06:00] VITALS: BP 124/81; PULSE 91; RESP 20; TEMP 98.1; O2SAT 97
[2025-01-06 11:00] VITALS: BP 145/76; PULSE 91; RESP 18; TEMP 98; O2SAT 97
[2025-01-06] MEDS ORDERED: PANT-47 PO (11:52)
[2025-01-06 15:09] VITALS: RESP 16
--- NOTE | 2025-01-06 16:23 | DISCHARGE SUMMARY-Residence ---
Discharge Summary Providers to CC Resident Creating Document: LISA COURTNEY, TAQUERIA ~ Discharge Summary Admission Diagnosis: incisional hernia with sbo Hospital Course DATE OF ADMISSION: 01/02/2025 DATE OF DISCHARGE: 01/06/2025 Discharge Diagnosis\Comment: # Small Bowel Obstruction # S/p Robotic repair of incisional herni and lysis of adhesions on 01/02/[address] Gonzalez # History of DVT Operations\Procedures: S/p Robotic repair of incisional herni and lysis of adhesions on 01/02/[address] Gonzalez Consultants: Dr Gonzalez Complications: None Condition on DC: Stable New Medications: Pantoprazole Sodium (PROTONIX tablet) 40 Mg Tablet.dr 40 MG PO DAILY for 7 Days, #7 TAB.SR Continued Medications: Bupropion Hcl (Wellbutrin) 100 Mg Tablet 1 TAB PO DAILY for 30 Days, #60 TAB 0 Refills Buspirone Hcl* (Buspar*) 10 Mg Tablet 15 MG PO DAILY for 30 Days, #60 TAB Rivaroxaban (Xarelto) 10 Mg Tablet 10 MG PO DAILY for clotting issues MDD 10 for 7 Days, #7 TAB 0 Refills Discharge Summary: A 39 years old female with history of multiple abdominal surgeries, class four obesity BMI 63, history of DVT, who presented to ER with acute severe abdominal pain found to have small bowel obstruction from the possible adhesions d eveloped from the previous multiple abdominal surgeries. Hospital course: Patient was admitted to the hospital for symptomatic abdominal pain from the small bowel obstruction. He underwent Robotic repair of incisional herni and lysis of adhesions on 01/02/2025, which was done by Dr Gonzalez. The patient was given IV ceftriaxone metronidazole and vancomycin for one time dose which was upgraded to IV Zosyn q.8 hours alone for the small-bowel obstruction induced GI infections for total five days during hospitalization. All of the postop multidisciplinary measures were provided to prevent possible postop c omplications and the pain was controlled well with IV Dilaudid injection as needed. Her rivaroxaban was hold before the surgery day, and resume after the surgery without having any complications including bleeding risk. Imaging during hospitalization: 1)Chest x-ray on 01/01/2025 showed No acute cardiopulmonary disease. Vascular crowding due to low lung volumes. 2)CTA abdomen and pelvis without IV contrast on 01/01/2025 showed 1. Small-bowel obstruction of a segment of mid to distal small bowel loop with transition point in a short segment of small bowel coursing into a right of midline anterior abdominal wall hernia. This could reflect a subincisional abdominal wall hernia given post surgical changes in the anterior abdominal w all. 2. Cholelithiasis. 3. Mild hepatomegaly. All of her questions and concerns were addressed with the best knowledge of our team before she was discharged back home today. All of the vitals were stable at the moment with temp 98.1 F, NE 91/minute, RR 20/minute, BP 124/81 mm Hg, pulse oximetry 97% on room air. On exam, General: Well alert, well oriented, not confused, not agitated, not in acute distress, well cooperated during the physical. HEENT: Conjunctive are pink, sclerae clear, no icterus, pupil is equal in both sides, reactive to light, no ear discharge, no pharyngeal erythema or an edema, mouth and lips are moist. Neck: Supple, no JVD, no lymphadenopathy and thyromegaly. Lungs:Equal air entry on both lungs, no additional sounds Heart: S1-S2 regular sinus rhythm and, regular rate, no gallops, no rubs, no murmurs Abdomen: The abdomen is secure with the abdominal binder, no signs of active bleeding/leakage under the abdominal binder, No visible peristalsis, Bowel sounds present on auscultation, soft, slightly distended, tenderness over the operative site, no guarding, no rigidity Extremities: No obvious deformities, no pitting edema bilaterally, capillary refill intact, able to wiggle toes both sides, peripheral pulsations are intact on both sides ASSOCIATE CIVIL ENGINEER: No focal neurological deficits, no motor and sensory weakness in all 4 extremities, could move all 4 extremities Musculoskeletal: No joint swelling, deformities, inflammations, and no scoliosis and back tenderness Skin: No active skin lesions and rashes Labs: Laboratory Tests Test 01/05/25 07:31 01/06/25 03:12 White Blood Count 7.5 X10'3 8.0 X10'3 Red Blood Count 4.45 X10'6 4.29 X10'6 Hemoglobin 12.1 g/dl 11.6 g/dl Hematocrit 36.2 % 34.5 % Mean Corpuscular Volume 81.4 FL 80.5 FL Mean Corpuscular Hemoglobin 27.1 PG 27.1 PG Mean Corpuscular Hemoglobin Concent 33.3 g/dL 33.6 g/dL Red Cell Distribution Width 15.0 % 14.7 % Platelet Count 261 X10'3 281 X10'3 Mean Platelet Volume 7.4 FL 7.4 FL Neutrophils (%) (Auto) 62.8 % 62.6 % Lymphocytes (%) (Auto) 24.2 % 23.8 % Monocytes (%) (Auto) 7.2 % 7.1 % Eosinophils (%) (Auto) 4.6 % 5.7 % Basophils (%) (Auto) 1.2 % 0.8 % Neutrophils # (Auto) 4.7 X10'3 5.0 X10'3 Lymphocytes # (Auto) 1.8 X10'3 1.9 X10'3 Monocytes # (Auto) 0.5 X10'3 0.6 X10'3 Eosinophils # (Auto) 0.3 X10'3 0.5 X10'3 Basophils # (Auto) 0.1 X10'3 0.1 X10'3 CBC Comment Sodium Level 137 MMOL/L 138 MMOL/L Potassium Level 4.1 MMOL/L 4.0 MMOL/L Chloride Level 104 MMOL/L 103 MMOL/L Carbon Dioxide Level 28.6 MMOL/L 31.1 MMOL/L Anion Gap 4 4 Blood Urea Nitrogen 5 MG/DL 4 MG/DL Creatinine 0.64 MG/DL 0.66 MG/DL Estimated GFR/1.73 m2 > 90 ML/MIN > 90 ML/MIN BUN/Creatinine Ratio 7.8 6.1 Glucose Level 95 MG/DL 104 MG/DL Calcium Level 7.6 MG/DL 7.9 MG/DL Magnesium Level 1.6 MG/DL 1.9 MG/DL Total Bilirubin 1.0 MG/DL 0.5 MG/DL Aspartate Amino Transf (AST/SGOT) 29 U/L 38 U/L Alanine Aminotransferase (ALT/SGPT) 20 U/L 38 U/L Alkaline Phosphatase 121 IU/L 146 IU/L Total Protein 6.0 G/DL 6.0 G/DL Albumin 2.1 G/DL 2.1 G/DL Globulin 3.9 G/DL 3.9 G/DL Albumin/Globulin Ratio 0.5 0.5 Chemistry Comments Discharge instructions: - Immediate return to the ER for any emergency situations including the severe progressive abd pain, nausea vomiting, bleeding or discharge or infection at the site of surgical incision etc -pain control with the prescribed pain meds -take deep breath in and out and encouraged to move around -follow up with the surgery Dr Gonzalez and PCP in 1-2 weeks after discharged -try not to lift heavy weight and do not strain the bowl and avoid having the constipation. Resident MD attestation: Patient was seen, examined and discussed with attending MD, Dr. Ed COURTNEY MD Internal Medicine Resident, PGY3 [facility] *Problems/Diagnosis: (1) Small bowel obstruction Status: Resolved Total Time Spent on D/C: > 30 Minutes Date of Service: Jan 06, 2025 Billing Provider: GRACIE MENA MD, TIN, RES Jan 06, 2025 16:03
== END 2025-01-06 16:02 | disposition home or self-care (01) | DRG 224 ==
LOC: ER 19:37 → ED HOLD 01-02 01:27 → SUR 3N 01-02 02:57 → PCU 3S 01-02 21:37 → SUR 3N 01-04 20:28
PROVIDERS: ADMIT Internal Medicine; ATTEND Family Medicine
PROC: 0DNW4ZZ Release Peritoneum, Percutaneous Endoscopic Approach (ICD-10-PCS; 2025-01-02)
PROC: 8E0W4CZ Robotic Assisted Procedure of Trunk Region, Percutaneous Endoscopic Approach (ICD-10-PCS; 2025-01-02)
PROC: 0WUF4JZ Supplement Abdominal Wall with Synthetic Substitute, Percutaneous Endoscopic Approach (ICD-10-PCS; principal; 2025-01-02 15:58)
DX: K43.0 Incisional hernia with obstruction, without gangrene (principal); R16.0 Hepatomegaly, not elsewhere classified; J45.909 Unspecified asthma, uncomplicated; K66.0 Peritoneal adhesions (postprocedural) (postinfection); K80.20 Calculus of gallbladder without cholecystitis without obstruction; Z79.01 Long term (current) use of anticoagulants; Z91.030 Bee allergy status; Z79.899 Other long term (current) drug therapy; Z90.49 Acquired absence of other specified parts of digestive tract
CPT/HCPCS: 36415; 71045; 74176; 80053; 80305; 81003; 81025; 82948; 83605; 83690; 83735; 83880; 84132; 84145; 84484; 85025; 85610; 85730; 86704; 86705; 87081; 87340; 93005; 96374; 96375; 99285; A4215; A4615; A4618; A5200; A6258; A6402; A6449; C1758; G0378; J0131; J0694; J1100; J1171; J1200; J1885; J2003; J2270; J2274; J2405; J2470; J2543; J2704; J2765; J3010; J3373; J3490; J7030; J7040; J7120